=== PATIENT | female | born 1985 | race Caucasian/White ===

== ENCOUNTER 2016-06-19 21:03 | Emergency (ER) | payer MEDICARE | END 2016-06-19 22:15 | disposition home or self-care (01) | LOC: ER 21:03 | DX: T23.172A Burn of first degree of left wrist, initial encounter (principal); L03.114 Cellulitis of left upper limb; F32.9 Major depressive disorder, single episode, unspecified; F41.9 Anxiety disorder, unspecified; Z88.1 Allergy status to other antibiotic agents; Z23 Encounter for immunization; X17.XXXA Contact with hot engines, machinery and tools, initial encounter; Y92.69 Other specified industrial and construction area as the place of occurrence of the external cause; Y99.0 Civilian activity done for income or pay | CPT/HCPCS: 90471 ==